=== PATIENT | male | born 1940 | race Caucasian/White ===

== ENCOUNTER 2018-02-05 09:20 | Inpatient (IN) | payer MEDICARE, MEDICAID ==
[~2018-02-05] VITALS: Ht 162.6 cm; Wt 59.4 kg
[~2018-02-05 09:20] MED LIST: ALBU6.7H INH; ATOR10TA PO; CARV6.252 PO; CHOL100011 PO; FERR325T18 PO; FLUT1DIS3 INH; Hydrocodone Bit/Acetaminophen PO; NITR0.4T28 SL; OMEP40CA3 PO; RIVA10TA PO; TAMS-11 PO; WARF1TAB74 PO
[2018-02-05] MEDS ORDERED: SODIUM CHLORIDE 0.9% 1,000 ML IV SCH (10:26)
[2018-02-05] MEDS ORDERED: FURO-92 PO (10:37)
[2018-02-05] MEDS ORDERED: LOSA25TA5 PO (10:37)
[2018-02-05] MEDS ORDERED: PLEASE ENTER HEIGHT AND WEIGHT MC SCH (11:00)
[2018-02-05] MEDS ORDERED: CEFAZOLIN 1,000 MG ONE (12:27)
[2018-02-05] MEDS ORDERED: FENTANYL PF 100 MCG/2ML ONE (12:27)
[2018-02-05] MEDS ORDERED: CEFAZOLIN PMX 1GM/50ML 50 ML ONE (12:27)
[2018-02-05] MEDS ORDERED: LIDOCAINE/PF 1%, 30ML ONE (12:27)
[2018-02-05] MEDS ORDERED: MIDAZOLAM 1 MG/ML, 5ML ONE (12:27)
[2018-02-05] MEDS ORDERED: ZOLPIDEM 5MG TABLET PO PRN (14:00)
[2018-02-05] MEDS ORDERED: AMIODARONE 150 MG in DEXTROSE 5% 100 ML IV ONE (14:00)
[2018-02-05] MEDS ORDERED: TEMPLATE NON-FORMULARY MED. (Albuterol Sulfate (Proventil Hfa) 2 PUFFS) INH PRN (14:00)
[2018-02-05] MEDS ORDERED: ONDANSETRON 2MG/ML, 2ML IV PRN (14:00)
[2018-02-05] MEDS ORDERED: AMIODARONE 900 MG in DEXTROSE 5% 482 ML IV PRN (14:00)
[2018-02-05] MEDS ORDERED: NITROGLYCERIN 0.4 MG BOTTLE (25 TABS) SL PRN (14:00)
[2018-02-05] MEDS ORDERED: ACETAMINOPHEN 325 MG TABLET PO PRN (14:00)
[2018-02-05] MEDS ORDERED: HYDROcodone/APAP 5/325 TABLET PO PRN (14:00)
[2018-02-05] MEDS ORDERED: FILTER 0.22 MICRON IV PRN (14:30)
[2018-02-05 14:37] VITALS: BP 131/81
[2018-02-05 19:18] VITALS: BP 115/75
[2018-02-05] MEDS: CARVEDILOL 12.5 MG TABLET PO SCH (20:26)
[2018-02-05] MEDS: CEFAZOLIN PMX 1GM/50ML 50 ML IVPB SCH (20:39)
[2018-02-05] MEDS: TEMPLATE NON-FORMULARY MED. (Fluticasone/Salmeterol** (Advair 250-50 Diskus**) 1 PUFF) INH SCH (21:00)
[2018-02-05] MEDS: SODIUM CHLORIDE FLUSH 10ML SYR IVF SCH (21:00)
[2018-02-06 00:46] VITALS: BP 130/82
[2018-02-06] MEDS: CEFAZOLIN PMX 1GM/50ML 50 ML IVPB SCH (05:36)
[2018-02-06 05:38] VITALS: BP 127/77
[2018-02-06] MEDS ORDERED: AMIODARONE 200 MG TABLET PO SCH ×2 (06:00→09:00)
[2018-02-06 07:31] VITALS: BP 110/69
[2018-02-06] MEDS: SODIUM CHLORIDE FLUSH 10ML SYR IVF SCH (08:24)
[2018-02-06] MEDS: CARVEDILOL 12.5 MG TABLET PO SCH (08:24)
[2018-02-06] MEDS: TEMPLATE NON-FORMULARY MED. (Fluticasone/Salmeterol** (Advair 250-50 Diskus**) 1 PUFF) INH SCH (08:24)
[2018-02-06] MEDS ORDERED: AMIO200T42 PO (08:44)
[2018-02-06] MEDS ORDERED: ACET325T14 PO (08:44)
[2018-02-06] MEDS ORDERED: CHOLECALCIFEROL 1,000 UNIT TABLET PO SCH (09:00)
[2018-02-06] MEDS ORDERED: FUROSEMIDE 40 MG TABLET PO SCH (09:00)
[2018-02-06] MEDS ORDERED: OMEPRAZOLE 20 MG CAPSULE.DR PO SCH (09:00)
[2018-02-06] MEDS ORDERED: TAMSULOSIN 0.4 MG CAP.ER.24H PO SCH (09:00)
[2018-02-06] MEDS ORDERED: LOSARTAN 25MG TABLET PO SCH (09:00)
== END 2018-02-06 11:00 | disposition home or self-care (01) | DRG 245 ==
LOC: CACL 09:20 → 5SO 13:35 → DCLOUNGE 02-06 10:29
PROVIDERS: ADMIT Internal Medicine Cardiovascular Disease; ATTEND Internal Medicine Cardiovascular Disease
PROC: 0JPT0PZ Removal of Cardiac Rhythm Related Device from Trunk Subcutaneous Tissue and Fascia, Open Approach (ICD-10-PCS; principal; 2018-02-05)
PROC: 0JH609Z Insertion of Cardiac Resynchronization Defibrillator Pulse Generator into Chest Subcutaneous Tissue and Fascia, Open Approach (ICD-10-PCS; 2018-02-05)
DX: Z45.02 Encounter for adjustment and management of automatic implantable cardiac defibrillator (principal); I42.9 Cardiomyopathy, unspecified; I47.2 Ventricular tachycardia; I13.0 Hypertensive heart and chronic kidney disease with heart failure and stage 1 through stage 4 chronic kidney disease, or unspecified chronic kidney disease; N18.4 Chronic kidney disease, stage 4 (severe); I35.8 Other nonrheumatic aortic valve disorders; Z95.810 Presence of automatic (implantable) cardiac defibrillator; Z88.1 Allergy status to other antibiotic agents; Z88.8 Allergy status to other drugs, medicaments and biological substances; I50.9 Heart failure, unspecified; I48.0 Paroxysmal atrial fibrillation; N40.0 Benign prostatic hyperplasia without lower urinary tract symptoms; J44.9 Chronic obstructive pulmonary disease, unspecified; Z79.01 Long term (current) use of anticoagulants
CPT/HCPCS: 33263; 99156; 99157; C1721; J0690; J2250; J3010; J3490; J0282; J7060